=== PATIENT | male | born 1980 | race Asian ===

== ENCOUNTER 2019-07-13 09:53 | Emergency (ER) | payer BC ==
[~2019-07-13] VITALS: Ht 167.6 cm; Wt 72.6 kg
[2019-07-13 10:05] VITALS: BP 118/85
[2019-07-13] MEDS ORDERED: LIDOCAINE 1% HCL (LOCAL ANESTH.) INJ 20ML MDV IJ ONE (10:45)
[2019-07-13] MEDS ORDERED: cefTRIAXone SOD 1,000 MG VL IM ONE (11:00)
[2019-07-13] MEDS ORDERED: KETOROLAC TROMETH 30 MG/ML 1ML VIAL IV ONE (11:00)
[2019-07-13] MEDS ORDERED: cefTRIAXone 1GM/50ML D5W 50 ML IV ONE (11:00)
== END 2019-07-13 12:34 | disposition home or self-care (01) ==
LOC: ER 09:53
DX: J34.0 Abscess, furuncle and carbuncle of nose (principal)
CPT/HCPCS: 10060; 87077; 87186; 87205; 96365; 96375; 99283; J0696; J1885; J2001

== ENCOUNTER 2019-07-15 07:26 | Emergency (ER) | payer BC ==
[~2019-07-15] VITALS: Ht 167.6 cm; Wt 74.8 kg
[2019-07-15 07:56] VITALS: BP 113/69
[2019-07-15] MEDS ORDERED: cefTRIAXone 1GM/50ML D5W 50 ML IV ONE (08:15)
== END 2019-07-15 08:59 | disposition home or self-care (01) ==
LOC: ER 07:26
DX: J34.0 Abscess, furuncle and carbuncle of nose (principal)
CPT/HCPCS: 96365; 99283; J0696; 96374